=== PATIENT | male | born 1955 | race American Indian/Alaskan Native ===

== ENCOUNTER 2021-06-18 11:26 | Emergency (ER) | payer BC ==
[2021-06-18 11:37] VITALS: BP 167/82
--- NOTE | 2021-06-18 12:33 | Emergency Department Report ---
ED General Adult HPI - General Chief complaint: Urogenital-Male Stated complaint: UNABALE TO URINE Time Seen by Provider: 06/18/21 12:30 Source: patient Mode of arrival: Ambulatory Limitations: No Limitations - History of Present Illness Initial comments: 66-year-old male with history of BPH presents due to urinary retention sudden onset this morning. States that the last time he was able to urinate was about 5-1/2 hours ago. He states that this has happened multiple times in the past he follows with the urologist and has an appointment in about a week and a half. Reports suprapubic discomfort, denies any preceding urinary tract infection symptoms or any other complaints. Severity is moderate nothing makes better or worse. Severity scale (0 -10): 7 - Related Data Allergies Allergy/AdvReac Type Severity Reaction Status Date / Time cetylpyridinium chloride Allergy Swelling Verified 06/18/21 11:34 [From Cepacol] ED Review of Systems ROS: Stated complaint: UNABALE TO URINE Other details as noted in HPI Comment: All other systems reviewed and negative ED Past Medical Hx - Past Medical History Previous Medical History?: No - Surgical History Past Surgical History?: No ED Physical Exam - General Limitations: No Limitations General appearance: alert, in no apparent distress - Head Head exam: Present: atraumatic, normocephalic - Eye Eye exam: Present: normal appearance - ENT ENT exam: Present: mucous membranes moist - Neck Neck exam: Present: normal inspection - Respiratory Respiratory exam: Present: normal lung sounds bilaterally. Absent: respiratory distress - Cardiovascular Cardiovascular Exam: Present: regular rate, normal rhythm. Absent: systolic murmur, diastolic murmur, rubs, gallop - GI/Abdominal GI/Abdominal exam: Present: soft, normal bowel sounds, other (Suprapubic distention with tenderness) - Rectal Rectal exam: Present: deferred - Extremities Exam Extremities exam: Present: normal inspection - Back Exam Back exam: Present: normal inspection - Neurological Exam Neurological exam: Present: alert, oriented X3 - Psychiatric Psychiatric exam: Present: normal affect, normal mood - Skin Skin exam: Present: warm, dry, intact, normal color. Absent: rash ED Course Vital Signs 06/18/21 11:36 Temperature 98.2 F Pulse Rate 83 Respiratory 18 Rate Blood Pressure 167/82 [Right] O2 Sat by Pulse 98 Oximetry ED Medical Decision Making - Lab Data Lab Results 06/18/21 Range/Units 12:35 Urine Color Yellow (Yellow) Urine Turbidity Clear (Clear) Urine pH 6.0 (5.0-7.0) Ur Specific Dix 1.016 (1.003-1.030) Urine Protein <15 mg/dl (Negative) mg/dL Urine Glucose (UA) Neg (Negative) mg/dL Urine Ketones Neg (Negative) mg/dL Urine Blood Neg (Negative) Urine Nitrite Neg (Negative) Urine Bilirubin Neg (Negative) Urine Urobilinogen < 2.0 (<2.0) mg/dL Ur Leukocyte Esterase Neg (Negative) Urine WBC (Auto) 2.0 (0.0-6.0) /HPF Urine RBC (Auto) 8.0 (0.0-6.0) /HPF Urine Bacteria (Auto) 1+ (Negative) /HPF Urine Mucus Few /HPF - Medical Decision Making Patient presents due to urinary retention onset this morning history of same with history of BPH. On exam suprapubic distention and tenderness is noted. Differentials include retention secondary to BPH, UTI. I discussed with the patient that we would recommend placing a Lantigua catheter sending him home with a leg bag and then following up with urology to DC this however he has stated he only wants to have a straight catheter done and be relieved currently and that he will follow-up. I have advised that we can do this however there is a likelihood that he will again have retention and need to return. He verbalized understanding and agreement with this states that if he needs to he will return but does not want to go home with a catheter. UA neg - Differential Diagnosis Urinary retention, BPH, UTI Critical care attestation.: If time is entered above; I have spent that time in minutes in the direct care of this critically ill patient, excluding procedure time. ED Disposition Clinical Impression: Urinary retention due to benign prostatic hyperplasia Disposition: DC- TO HOME OR SELFCARE Is pt being admited?: No Condition: Stable Instructions: Benign Prostatic Hyperplasia, Acute Urinary Retention, Male Referrals: SUZI HUGHES MD [Staff Physician] - 3-5 Days Time of Disposition: 13:49
[2021-06-18 13:38] LABS: Bacteria,Urine 1+ /HPF (Negative); Bilirubin,Urine NEG (Negative); Blood,Urine NEG (Negative); Color,Urine Yellow (Yellow); Mucus,Urine FEW /HPF; Protein,Urine <15 mg/dL mg/dL (Negative); Urobilinogen,Urine < 2.0 mg/dL (<2.0)
== END 2021-06-18 13:59 | disposition home or self-care (01) ==
LOC: ED 11:26
DX: N40.1 Benign prostatic hyperplasia with lower urinary tract symptoms (principal); R33.8 Other retention of urine; Z88.8 Allergy status to other drugs, medicaments and biological substances
CPT/HCPCS: 81001; 99283